=== PATIENT | female | born 1985 | race Caucasian/White ===

== ENCOUNTER 2018-11-11 07:14 | Emergency (ER) | payer OTHER ==
[~2018-11-11] VITALS: Ht 167.6 cm; Wt 66.7 kg
[2018-11-11 07:20] VITALS: BP 135/75; PULSE 74; RESP 19; Ht 167.6 cm; Wt 66.7 kg
[2018-11-11] MEDS ORDERED: ALBUTEROL 0.083% (NEB) 2.5 MG/3 ML AMP NEB STA (07:27)
[2018-11-11] MEDS ORDERED: IPRATROPIUM (NEB) 0.5 MG/2.5 ML AMP NEB STA (07:27)
--- NOTE | 2018-11-11 07:30 | ERD ---
ER Documentation Chief Complaint Chief Complaint SOB,hx asthma HPI 33-year-old female, with history of asthma, presents the emergency department, complaining of worsening of cough during the last 2 weeks, associated with greenish sputum, subjective fever and general malaise. The patient denies acute wheezing and she is requesting a prescription for the Z-Garth. She usually controls her asthma with Ventolin inhaler and Advair. ROS All systems reviewed and are negative except as per history of present illness. Medications Home Meds Active Scripts Prednisone* (Prednisone*) 20 Mg Tab, 60 MG PO DAILY for 5 Days, TAB Prov:CELY CASTILLO MD 11/11/18 Montelukast Sodium* (Montelukast Sodium*) 10 Mg Tablet, 10 MG PO QHS, #30 TAB Prov:CELY CASTILLO MD 11/11/18 Albuterol Sulfate* (Ventolin HFA*) 18 Gm Hfa.aer.ad, 2 PUFF INHALATION Q4H, #1 INHALER Prov:CELY CASTILLO MD 11/11/18 Azithromycin* (Zithromax*) 250 Mg Tablet, 250 MG PO .ZPACK DIRECTED, #6 TAB TAKE 500 MG (2 TABS) THE FIRST DAY THEN 250 MG (1 TAB) DAYS 2-5 Prov:CELY CASTILLO MD 11/11/18 Allergies Allergies: Coded Allergies: No Known Allergy (Unverified , 11/11/18) PMhx/Soc Medical and Surgical Hx: pt denies Surgical Hx Hx Respiratory Disorders: Yes (Asthma) FmHx Family History: diabetes (Mother); No coronary disease Physical Exam Vitals Vital Signs Date Temp Pulse Resp B/P (MAP) Pulse Ox O2 O2 Flow FiO2 Time Delivery Rate 11/11/18 64 20 98 21 07:45 11/11/18 98.5 74 19 135/75 97 07:20 (95) Physical Exam Patient alert, oriented, vital signs stable. HEAD: Normocephalic, atraumatic. EYES: PERRLA, EOMI, Sclera and conjunctiva appear normal. NOSE: Clear and patent nostrils. EARS: Canals clear, tympanic membranes WNL. MOUTH: normal lips and tongue, no oral lesions. THROAT: Normal oropharynx, no tonsillar exudates. NECK: Supple, No lymphadenopathy. Full ROM without pain or tenderness. HEART: RRR, no rubs, murmurs, clicks or gallops. LUNGS: Rhonchi, but no wheezing to auscultation. ABDOMEN: Soft, non-tender without masses or hepatosplenomegaly. EXTREMITIES: No edema bilaterally. BACK: Full ROM, no deformity, normal back exam NEURO: Cranial nerves grossly intact, no motor or sensory deficit SKIN: No rashes, no petechia. Results 24 hrs Current Medications Medications Dose Sig/Shay Start Time Status Last (Trade) Ordered Route PRN Stop Time Admin Dose Reason Admin Albuterol 5 mg ONCE STAT 11/11/18 DC 11/11/18 (Proventil NEB 07:27 07:44 0.083% (Neb)) 11/11/18 07:33 Ipratropium 0.5 mg ONCE STAT 11/11/18 DC 11/11/18 Iola NEB 07:27 07:44 (Atrovent 11/11/18 07:33 0.02% (Neb)) Procedures/MDM At the time of discharge, vital signs stable, no respiratory distress. Differential diagnosis include but not limited to: Respiratory infection bacterial/viral/fungal. Asthma/COPD, pneumonitis, allergies, GERD. Less likely foreign body aspiration, cardiac related, aspiration pneumonia, malignancy. Physical examination and clinical presentation consistent most likely with poorly controlled intermittent asthma without acute bronchospasm with suspected early superimposed bacterial infection. During the ED course the patient remained stable, received a nebulized treatment in the ED presenting overall improvement of the symptoms, no new complaints. Clinical impression discussed with the patient who agrees with management. The patient is stable to be treated outpatient and will be discharged home. Some side effects of prescribed medications (headache, rash, nausea, vomiting, diarrhea, drowsiness, habituation, bleeding, hypertension, interactions with other medications) were reviewed. The patient was instructed to follow up with the primary care provider in the next 48h. If symptoms persist, worsen or new symptoms develop, then patient should return to the ED immediately. Disclaimer: Inadvertent spelling and grammatical errors are likely due to EHR/dictation software use and do not reflect on the overall quality of patient care. Also, please note that the electronic time recorded on this note does not necessarily reflect the actual time of the patient encounter. Departure Diagnosis: Primary Impression: Cough Additional Impression: Intermittent asthma, not well controlled Condition: Stable Additional Instructions: Thank you very much for allowing us to participate in your care. Your health and safety is our top priority at [facility]. The evaluation in the emergency department has been done to rule out an acute emergency, therefore, chronic conditions like malignancy or other diseases have not been evaluated; therefore, you need to follow up with a primary care provider in the next 48h. If symptoms persist, worsen or new symptoms develop, then patient should return to the ED immediately. Call your primary care doctor TOMORROW for an appointment during the next 2-4 days and bring all the information provided. Have prescriptions filled and follow precisely the directions on the label. If the symptoms get worse and your provider is unavailable, return to the Emergency Department immediately. CELY CASTILLO MD Nov 11, 2018 07:30
[2018-11-11] MEDS ORDERED: AZIT250T PO (07:52)
[2018-11-11] MEDS ORDERED: MONT10TA24 PO (07:52)
[2018-11-11] MEDS ORDERED: ALBU18HF INHALATION (07:52)
[2018-11-11] MEDS ORDERED: PRED20TA PO (08:12)
== END 2018-11-11 08:20 | disposition home or self-care (01) ==
LOC: FTE 07:14
DX: J45.21 Mild intermittent asthma with (acute) exacerbation (principal)
CPT/HCPCS: 94664; Z7502; Z7610

== ENCOUNTER 2018-12-29 08:32 | Emergency (ER) | payer OTHER ==
[~2018-12-29] VITALS: Ht 165.1 cm; Wt 66.1 kg
[~2018-12-29 08:32] MED LIST: ALBU18HF INHALATION; AZIT250T PO; MONT10TA24 PO; PRED20TA PO
[2018-12-29 08:36] VITALS: BP 118/74; PULSE 71; RESP 16; Ht 165.1 cm; Wt 66.1 kg
[2018-12-29] MEDS ORDERED: ALBU8.5H8 INH (09:00)
[2018-12-29] MEDS ORDERED: ADV10050 INHALATION (09:00)
[2018-12-29] MEDS ORDERED: D-ME473S2 PO (09:00)
[2018-12-29] MEDS ORDERED: MED4DP PO (09:00)
--- NOTE | 2018-12-29 09:05 | ERD ---
ER Documentation Chief Complaint Chief Complaint COUGH X2 WEEKS HPI This is a 33-year-old female with a history of asthma and tobacco smoking history who presents to ED with complaints of cough x2 weeks. Patient admits to some sputum production and some shortness of breath with prolonged coughing spells. Denies high fevers, sore throat, runny nose, ear pain, chest pain, trouble breathing and all other symptoms. No known drug allergies. Similar symptoms in the past and she was treated with a Z-Garth. States that she is out of her albuterol inhaler and has used Advair in the past and would like a refill of that as well. ROS All systems reviewed and are negative except as per history of present illness. Medications Home Meds Active Scripts Salmeterol Xinaf-Fluticasone* (Advair*) 100/50 Diskus Inhaler, 1 INH INHALATION BID, #1 INHALER Prov:KAYLA GIRON PA-C 12/29/18 Albuterol Sulfate* (Proair HFA*) 8.5 Gm Hfa.aer.ad, 2 PUFF INH Q4, #1 INHALER Prov:KAYLA GIRON PA-C 12/29/18 Methylprednisolone* (Medrol* DOSE PACK) 4 Mg/Dose-Pack Tab.ds.pk, 4 MG PO . DIRECTED for 5 Days, PACKET Prov:KAYLA GIRON PA-C 12/29/18 Dextromethorphan Hb-Promethazine Hcl* (Promethazine DM* Syrup) 473 Ml Syrup, 5 ML PO Q6 PRN for COUGH for 5 Days, ML Prov:KAYLA GIRON PA-C 12/29/18 Prednisone* (Prednisone*) 20 Mg Tab, 60 MG PO DAILY for 5 Days, TAB Prov:CELY CASTILLO MD 11/11/18 Montelukast Sodium* (Montelukast Sodium*) 10 Mg Tablet, 10 MG PO QHS, #30 TAB Prov:CELY CASTILLO MD 11/11/18 Albuterol Sulfate* (Ventolin HFA*) 18 Gm Hfa.aer.ad, 2 PUFF INHALATION Q4H, #1 INHALER Prov:CELY CASTILLO MD 11/11/18 Azithromycin* (Zithromax*) 250 Mg Tablet, 250 MG PO .PHONG DIRECTED, #6 TAB TAKE 500 MG (2 TABS) THE FIRST DAY THEN 250 MG (1 TAB) DAYS 2-5 Prov:CELY CASTILLO MD 11/11/18 Allergies Allergies: Coded Allergies: No Known Allergy (Unverified , 11/11/18) PMhx/Soc History of Surgery: No Anesthesia Reaction: No Hx Neurological Disorder: No Hx Respiratory Disorders: Yes (Asthma) Hx Cardiac Disorders: No Hx Psychiatric Problems: No Hx Miscellaneous Medical Probl: No Hx Alcohol Use: No Hx Substance Use: No Hx Tobacco Use: No FmHx Family History: No diabetes Physical Exam Vitals Vital Signs Date Temp Pulse Resp B/P (MAP) Pulse Ox O2 O2 Flow FiO2 Time Delivery Rate 12/29/18 98.1 71 16 118/74 97 08:36 (89) Physical Exam Physical Exam Vitals signs: Reviewed by me. General: Well developed, well nourished, in no acute distress. Patient is awake and alert. Head: Normocephalic, atraumatic. Eyes: Normal conjunctiva, Pupils PERRLA, EOM intact grossly ENT: Pharynx is clear, Moist mucous membranes, external ears, nose and mouth normal Neck: Supple, no masses, lymphadenopathy or JVD Respiratory: Clear to auscultation bilaterally with no wheezing, rhonchi, rales, no distress, no labored breathing Cardiovascular: RRR, no murmurs, rubs, or gallop Neurologic: Alert and oriented, moving all extremities, normal speech, no focal weakness, no cerebellar signs. Normal mentation Skin: warm and dry, No rash Psych: Normal mood Procedures/MDM ER COURSE: The patient was stable throughout ED course. I kept the patient and/or family informed of laboratory and diagnostic imaging results throughout the emergency room course. The patient was promptly evaluated and a treatment plan was devised based on H&P and other data. This plan was discussed with the patient who agreed and had no further questions or concerns prior to discharge. MEDICAL DECISION MAKIN-year-old female with a history of asthma and tobacco smoking history presents ED with complaints of cough x2 weeks. Symptoms are most likely consistent with acute bronchitis, likely caused from a viral infection. Low suspicion for pneumonia, as lung sounds are clear at this time. Oxygen saturation is normal and patient does not have any respiratory distress. Advanced imaging is not indicated at this time. Low suspicion for other cardiopulmonary emergency such as pulmonary embolism, pneumothorax, tension pneumothorax, pleural effusion, p neumothorax, CHF, aortic aneurysm or other cardiopulmonary emergencies. No evidence of sepsis. Patient's vitals are stable he can be managed with close outpatient follow-up. Advised patient to follow-up with primary care in the next 48 hours. Return to ED with any worsening symptoms DISPOSITION PLAN: We discussed follow up with the patient's primary care doctor within 24 to 48 hours. Patient counseled regarding my diagnostic impression and care plan. Prior to discharge all questions answered. Pt agrees with treatment plan and understands strict return precautions. Precautionary instructions provided including instructions to return to the ER if not improving or for any worsening or changing symptoms or concerns. ExitCare instructions provided. Prior to discharge, patients vital signs have been reviewed SPECIALIST FOLLOW UP RECOMMENDED: None Patient has been advised to follow up with primary care in 1-2 days. Disclaimer: Inadvertent spelling and grammatical errors are likely due to EHR/dictation software use and do not reflect on the overall quality of patient care. Also, please note that the electronic time recorded on this note does not necessarily reflect the actual time of the patient encounter. Smoking Cessation Therapy: Pt. was lectured for greater than 3 minutes on the health risks of continued smoking and the benefits of cessation. Departure Diagnosis: Primary Impression: Cough Condition: Stable Patient Instructions: Acute Bronchitis, Tips for Quitting Smoking (Cardiovascular) Referrals: [facility] YOU HAVE RECEIVED A MEDICAL SCREENING EXAM AND THE RESULTS INDICATE THAT YOU DO NOT HAVE A CONDITION THAT REQUIRES URGENT TREATMENT IN THE EMERGENCY DEPARTMENT. FURTHER EVALUATION AND TREATMENT OF YOUR CONDITION CAN WAIT UNTIL YOU ARE SEEN IN YOUR DOCTORS OFFICE WITHIN THE NEXT 1-2 DAYS. IT IS YOUR RESPONSIBILITY TO MAKE AN APPOINTMENT FOR FOLOW-UP CARE. IF YOU HAVE A PRIMARY DOCTOR --you should call your primary doctor and schedule an appointment IF YOU DO NOT HAVE A PRIMARY DOCTOR YOU CAN CALL OUR PHYSICIAN REFERRAL HOTLINE AT IF YOU CAN NOT AFFORD TO SEE A PHYSICIAN YOU CAN CHOSE FROM THE FOLLOWING [facility] [address] [facility] [address] [facility] [facility] [address] [facility] [facility] [address] [facility] [address] [facility]. [facility] [address] Additional Instructions: Patient advised to return to the ED immediately for new or worsening symptoms. Patient advised to follow up with primary care provider in the next 24-48 hours. Patient verbalized understanding and agrees with treatment plan and course of action. If patient has no primary care they may follow up with one of the [facility] clinics listed on the following page or one of the options listed below [facility] + [facility] [address] [place] [address] or [facility] [address] [place] [address] or [facility] [address] [place] [address] KAYLA GIRON PA-C Dec 29, 2018 09:04
== END 2018-12-29 09:23 | disposition home or self-care (01) ==
LOC: FTE 08:32
DX: J45.901 Unspecified asthma with (acute) exacerbation (principal); Z87.891 Personal history of nicotine dependence
CPT/HCPCS: 99283

== ENCOUNTER 2019-02-02 12:53 | Emergency (ER) | payer OTHER ==
[~2019-02-02] VITALS: Ht 157.5 cm; Wt 67.0 kg
[~2019-02-02 12:53] MED LIST changes: +ADV10050 INHALATION; +ALBU8.5H8 INH; +D-ME473S2 PO; +MED4DP PO
[2019-02-02 12:56] VITALS: BP 121/60; PULSE 78; RESP 18; Ht 157.5 cm; Wt 67.0 kg
--- NOTE | 2019-02-02 13:29 | ERD ---
ER Documentation Chief Complaint Chief Complaint RASH X 2 WEEKS ON ABDOMEN HPI Patient is a 33 years old female with past medical history of asthma presenting to the clinic for unimproved pruritic rash on bilateral breasts and clavicle region. Patient reports pruritus is very severe and can stop herself from scratching it. Patient admits to using Benadryl to go to sleep at night on a regular basis and is unsure if Benadryl is helping. Patient denies fever, chills, night sweats. Patient is also requesting albuterol HFA refill for her asthma. ROS All systems reviewed and are negative except as per history of present illness. Medications Home Meds Active Scripts Albuterol Sulfate* (Proair HFA*) 8.5 Gm Hfa.aer.ad, 2 PUFF INH Q4, #1 INHALER Prov:KIM FERNANDEZ PA-C 02/02/19 Hydrocortisone* Topical (Hydrocortisone* Topical) 2.5%-28.3 Gm Cream..g., 1 APPLIC TOP BID, #1 TUB Prov:KIM FERNANDEZ PA-C 02/02/19 Hydroxyzine Hcl* (Atarax*) 50 Mg Tab, 50 MG PO Q8H PRN for ITCHING for 7 Days, #21 TAB Prov:KIM FERNANDEZ PA-C 02/02/19 Salmeterol Xinaf-Fluticasone* (Advair*) 100/50 Diskus Inhaler, 1 INH INHALATION BID, #1 INHALER Prov:KAYLA GIRON PA-C 12/29/18 Albuterol Sulfate* (Proair HFA*) 8.5 Gm Hfa.aer.ad, 2 PUFF INH Q4, #1 INHALER Prov:KAYLA GIRON PA-C 12/29/18 Methylprednisolone* (Medrol* DOSE PACK) 4 Mg/Dose-Pack Tab.ds.pk, 4 MG PO . DIRECTED for 5 Days, PACKET Prov:KAYLA GIRON PA-C 12/29/18 Dextromethorphan Hb-Promethazine Hcl* (Promethazine DM* Syrup) 473 Ml Syrup, 5 ML PO Q6 PRN for COUGH for 5 Days, ML Prov:KAYLA GIRON PA-C 12/29/18 Prednisone* (Prednisone*) 20 Mg Tab, 60 MG PO DAILY for 5 Days, TAB Prov:GOMES-GOMEZ,CELY MD 11/11/18 Montelukast Sodium* (Montelukast Sodium*) 10 Mg Tablet, 10 MG PO QHS, #30 TAB Prov:CELY CASTILLO MD 11/11/18 Albuterol Sulfate* (Ventolin HFA*) 18 Gm Hfa.aer.ad, 2 PUFF INHALATION Q4H, #1 INHALER Prov:CELY CASTILLO MD 11/11/18 Azithromycin* (Zithromax*) 250 Mg Tablet, 250 MG PO .ZPACK DIRECTED, #6 TAB TAKE 500 MG (2 TABS) THE FIRST DAY THEN 250 MG (1 TAB) DAYS 2-5 Prov:CELY CASTILLO MD 11/11/18 Discontinued Scripts Albuterol Sulfate* (Albuterol Sulfate* Neb) 0.083%-3 Ml Neb, 2.5 MG NEB Q4 PRN for SHORTNESS OF BREATH, #30 EA Prov:KIM FERNANDEZ PA-C 02/02/19 Allergies Allergies: Coded Allergies: No Known Allergy (Unverified , 11/11/18) PMhx/Soc History of Surgery: No Anesthesia Reaction: No Hx Neurological Disorder: No Hx Respiratory Disorders: Yes (Asthma) Hx Cardiac Disorders: No Hx Psychiatric Problems: No Hx Miscellaneous Medical Probl: No Hx Alcohol Use: No Hx Substance Use: No Hx Tobacco Use: No Smoking Status: Never smoker FmHx Family History: No diabetes, No coronary disease, No other Physical Exam Vitals Vital Signs Date Temp Pulse Resp B/P (MAP) Pulse Ox O2 O2 Flow FiO2 Time Delivery Rate 02/02/19 98.1 78 18 121/60 99 12:56 (80) Physical Exam Const: No acute distress Head: Atraumatic Eyes: Normal Conjunctiva Resp: Clear to auscultation bilaterally Cardio: Regular rate and rhythm, no murmurs Skin: Diffuse macular rash around bilateral breasts extending to bilateral clavicle region. Negative shawl sign, no induration, no skin perforation, no excoriation, no pus drainage. Back: No midline or flank tenderness Ext: No cyanosis, or edema Neur: Awake and alert Psych: Normal Mood and Affect Patient exposed her breast for rash evaluation before provider could get a female production cook. Results 24 hrs Laboratory Tests Test 7/14/19 13:35 POC Beta HCG, Qualitative NEGATIVE Current Medications Medications Dose Sig/Shay Start Time Status Last (Trade) Ordered Route PRN Stop Time Admin Dose Reason Admin Hydroxyzine 50 mg ONCE ONCE 02/02/19 DC 02/02/19 HCl PO 13:30 13:37 (Atarax) 02/02/19 13:31 125 mg ONCE ONCE 02/02/19 DC 02/02/19 Methylprednis IM 13:30 13:38 olone Sodium 02/02/19 13:31 Succinate (Solu-Medrol) Procedures/MDM Patient was seen and evaluated for pruritic rash without complications. Low suspicion is of cellulitis, TEN, fungal infection, psoriasis, eczema, dermatomyositis. Urine negative. Patient was given Solu-Medrol 125 IM, hydroxyzine 50 mg p.o. in ED with significant improvement of symptoms. Patient is stable and ready for discharge. Follow-up with PCP for dermatology referral if rash persists. Patient will be discharged with hydroxyzine, hydrocortisone. Patient will be given albuterol for her asthma. patient was advised to avoid scratching rash. Departure Diagnosis: Primary Impression: Rash and other nonspecific skin eruption Condition: Stable Patient Instructions: Self-Care for Skin Rashes Referrals: [facility] Additional Instructions: Patient advised to return to the ED immediately for new or worsening symptoms. Patient advised to follow up with primary care provider in the next 24-48 hours. Patient verbalized understanding and agrees with treatment plan and course of action. If patient has no primary care they may follow up with [facility] + [facility] [address] [place] [id number] or [facility] [address] [place] [address] or [facility] [address] [place] [address] KIM FERNANDEZ PA-C Feb 02, 2019 13:29
[2019-02-02] MEDS ORDERED: METHYLPREDNISOLONE 125 MG INJ IM ONE (13:30)
[2019-02-02] MEDS ORDERED: hydrOXYzine HCL 25 MG TAB PO ONE (13:30)
[2019-02-02] MEDS ORDERED: ALBU2.5V3 NEB (13:31)
[2019-02-02] MEDS ORDERED: HC30CR25 TOP (13:31)
[2019-02-02] MEDS ORDERED: HYDR-845 PO (13:31)
[2019-02-02] MEDS ORDERED: ALBU8.5H8 INH (13:34)
== END 2019-02-02 14:06 | disposition home or self-care (01) ==
LOC: FTE 12:53
DX: R21 Rash and other nonspecific skin eruption (principal); J45.909 Unspecified asthma, uncomplicated
CPT/HCPCS: 81025; 96372; J2930; Z7502; Z7610

== ENCOUNTER 2019-02-11 07:05 | Emergency (ER) | payer OTHER ==
[~2019-02-11] VITALS: Ht 157.5 cm; Wt 66.0 kg
[~2019-02-11 07:05] MED LIST changes: +HC30CR25 TOP; +HYDR-845 PO
[2019-02-11 07:06] VITALS: BP 116/73; PULSE 76; RESP 18; Ht 157.5 cm; Wt 66.0 kg
[2019-02-11] MEDS ORDERED: ALBU8.5H8 INH (07:51)
[2019-02-11] MEDS ORDERED: GUAI120S25 PO (07:51)
[2019-02-11] MEDS ORDERED: BEN25 PO (07:51)
[2019-02-11] MEDS ORDERED: HC30CR25 TOP (07:53)
[2019-02-11] MEDS ORDERED: DIPHENHYDRAMINE 50 MG CAP PO ONE (08:00)
--- NOTE | 2019-02-11 08:12 | ERD ---
ER Documentation Chief Complaint Chief Complaint rash,cough HPI Patient is 33-year-old female presented to ED for skin rash x4 weeks. Patient states she was seen a week ago in the ED and was given a steroid injection topical hydrocortisone and hydroxyzine. Patient states that the symptoms are still there is not getting better. Patient states she also had a cough for 1 month and that she is a smoker and has a history of asthma and bronchitis. Patient also has a history of anxiety and is been on the medication gabapentin for few months. Patient denies any allergies to medications. ROS All systems reviewed and are negative except as per history of present illness. Medications Home Meds Active Scripts Hydrocortisone* Topical (Hydrocortisone* Topical) 2.5%-28.3 Gm Cream..g., 1 APPLIC TOP BID, #1 TUB Prov:SHAWN LANCASTER PA-C 02/11/19 Diphenhydramine Hcl* (Benadryl*) 25 Mg Cap, 25 MG PO Q6, #30 CAP Prov:SHAWN LANCASTER PA-C 02/11/19 Yoglesznpyp-F-Douxgoqdae Hb* (Guaifenesin* DM Syrup) 120 Ml Syrup, 10 ML PO Q4H PRN for COUGH for 7 Days, ML Prov:SHAWN LANCASTER PA-C 02/11/19 Albuterol Sulfate* (Proair HFA*) 8.5 Gm Hfa.aer.ad, 2 PUFF INH Q4, #1 INHALER Prov:SHAWN LANCASTER PA-C 02/11/19 Albuterol Sulfate* (Proair HFA*) 8.5 Gm Hfa.aer.ad, 2 PUFF INH Q4, #1 INHALER Prov:KIM FERNANDEZ PA-C 02/02/19 Hydrocortisone* Topical (Hydrocortisone* Topical) 2.5%-28.3 Gm Cream..g., 1 APPLIC TOP BID, #1 TUB Prov:KIM FERNANDEZ PA-C 02/02/19 Hydroxyzine Hcl* (Atarax*) 50 Mg Tab, 50 MG PO Q8H PRN for ITCHING for 7 Days, #21 TAB Prov:KIM FERNANDEZ PA-C 02/02/19 Salmeterol Xinaf-Fluticasone* (Advair*) 100/50 Diskus Inhaler, 1 INH INHALATION BID, #1 INHALER Prov:KAYLA GIRON PA-C 12/29/18 Albuterol Sulfate* (Proair HFA*) 8.5 Gm Hfa.aer.ad, 2 PUFF INH Q4, #1 INHALER Prov:KAYLA GIRON PA-C 12/29/18 Methylprednisolone* (Medrol* DOSE PACK) 4 Mg/Dose-Pack Tab.ds.pk, 4 MG PO . DIRECTED for 5 Days, PACKET Prov:KAYLA GIRON PA-C 12/29/18 Dextromethorphan Hb-Promethazine Hcl* (Promethazine DM* Syrup) 473 Ml Syrup, 5 ML PO Q6 PRN for COUGH for 5 Days, ML Prov:KAYLA GIRON PA-C 12/29/18 Prednisone* (Prednisone*) 20 Mg Tab, 60 MG PO DAILY for 5 Days, TAB Prov:CELY CASTILLO MD 11/11/18 Montelukast Sodium* (Montelukast Sodium*) 10 Mg Tablet, 10 MG PO QHS, #30 TAB Prov:CELY CASTILLO MD 11/11/18 Albuterol Sulfate* (Ventolin HFA*) 18 Gm Hfa.aer.ad, 2 PUFF INHALATION Q4H, #1 INHALER Prov:CELY CASTILLO MD 11/11/18 Azithromycin* (Zithromax*) 250 Mg Tablet, 250 MG PO .ZPACK DIRECTED, #6 TAB TAKE 500 MG (2 TABS) THE FIRST DAY THEN 250 MG (1 TAB) DAYS 2-5 Prov:CELY CASTILLO MD 11/11/18 Allergies Allergies: Coded Allergies: No Known Allergy (Unverified , 11/11/18) PMhx/Soc History of Surgery: No Anesthesia Reaction: No Hx Neurological Disorder: No Hx Respiratory Disorders: Yes (Asthma) Hx Cardiac Disorders: No Hx Psychiatric Problems: No Hx Miscellaneous Medical Probl: No Hx Alcohol Use: Yes Hx Substance Use: No Hx Tobacco Use: Yes Smoking Status: Current every day smoker FmHx Family History: No diabetes, No coronary disease, No other Physical Exam Vitals Vital Signs Date Temp Pulse Resp B/P (MAP) Pulse Ox O2 O2 Flow FiO2 Time Delivery Rate 02/11/19 98.0 76 18 116/73 99 07:06 (87) Physical Exam NECK: C-spine is soft and supple. There is no meningismus. There is no cervical lymphadenopathy. CHEST: Clear to auscultation bilaterally. There are no rales, wheezes or rhonchi. HEART: Regular rate and rhythm. No murmurs, clicks, rubs or gallops. ABDOMEN:Soft, nontender and nondistended. Good bowel sounds. No rebound or guarding. No gross peritonitis. No gross organomegaly or masses. No Blackwood sign or McBurney point tenderness. BACK: No midline or flank tenderness. SKIN: Erythematous nonraised rash located on patient's left flank right flank upper abdominal region, arms bilaterally, upper thighs bilaterally. Negative Nikolsky sign Results 24 hrs Current Medications Medications Dose Sig/Shay Start Time Status Last (Trade) Ordered Route PRN Stop Time Admin Dose Reason Admin 50 mg ONCE ONCE 02/11/19 DC 02/11/19 Diphenhydrami PO 08:00 07:39 ne HCl 02/11/19 08:01 (Benadryl) Procedures/MDM ED course: The patient was stable throughout the ED course. The patient and/or family informed of laboratory and diagnostic imaging results throughout the ED course. Medications given in ER: Benadryl Patient tolerated medication well with no adverse reactions. Patient reported improvement in pain. Smoking Cessation Therapy: Pt. was lectured for greater than 3 minutes on the health risks of continued smoking and the benefits of cessation. Medical decision making: The patient is 33-year-old female presenting to the ED for a rash upper abdom inal, bilateral arms, upper thighs x4 weeks The patient is afebrile and symptoms have been going on for 4 weeks. She was recently seen a week ago in the ED and was discharged with hydroxyzine, hydrocortisone topical and given a steroid shot. Patient states that has not gotten better. The patient recently was prescribed gabapentin. The rash does not involve the patients mouth or neck. The patient is in no acute respiratory distress. The patient denies IV drug use. The patient has no associated conjunctivitis, cracked lips, or strawberry tongue, The rash is nonblanching and the skin is not breaking away Nikolsky sign was negative. Physical exam exam revealed No facial edema} no Koplik spots in buccal mucosa negative Nikolsky sign no palpable fluctuant masses no skin ulcerations, puncture wounds. At this time I have low suspicion for Kawasaki disease, scarlet fever, necro tizing fasciitis, sepsis, gangrene, Adrian-Elie syndrome, toxic epidural necrolysis, abscess, cellulitis, herpes zoster, viral exanthem, anaphylaxis, allergic reaction, allergic contact dermatitis, irritant contact dermatitis, fungal infection, insect bite, impetigo, dermatitis. I advised the patient that I believe the symptoms are from her gabapentin. I advised patient she needs to follow-up with her psychiatrist as soon as possible. Advised the patient that if the rash gets worse the skin starts breaking away or she is not in any worsening discomfort to return to ER immediately. Patient has a history of chronic bronchitis and is a current smoker. At this time I have low suspicion for pneumonia but I am refilling the patient's Pro Air and giving her prescription for guaifenesin for chronic cough. Prescription for home: Pro Air Guaifenesin Benadryl Hydrocortisone topical I have discussed with the patient proper use and common side effects to expert with the medication . I advised the patient/family to speak with the pharmacist dispensing the medication to be advised of any potential drug interactions with other medication or supplements they may be taking. Discharge: At this time, patient is stable for discharge and outpatient management. I have instructed the patient to follow-up with his\her primary care physician in 1 to 2 days. I have discussed with the patient the possibility of needing to see a specialist for further work-up and imaging studies if symptoms persist. I have instructed the patient to promptly return to the ER for any new or worsening symptoms including increased pain, fever, nausea, vomiting, weakness or LOC. The patient and\or family expressed understanding of and agreement with this plan. All questions were answered. Home care instructions were provided. Disclaimer: Inadvertent spelling and grammatical errors are likely due to EHR\dictation software use and do not reflect on the overall quality of patient care. Also, please note that the electronic time recorded on the note does not necessarily reflect the actual time of the patient encounter. Departure Diagnosis: Primary Impression: Rash and other nonspecific skin eruption Additional Impression: Cough Condition: Stable Patient Instructions: Self-Care for Skin Rashes Referrals: [facility] YOU HAVE RECEIVED A MEDICAL SCREENING EXAM AND THE RESULTS INDICATE THAT YOU DO NOT HAVE A CONDITION THAT REQUIRES URGENT TREATMENT IN THE EMERGENCY DEPARTMENT. FURTHER EVALUATION AND TREATMENT OF YOUR CONDITION CAN WAIT UNTIL YOU ARE SEEN IN YOUR DOCTORS OFFICE WITHIN THE NEXT 1-2 DAYS. IT IS YOUR RESPONSIBILITY TO MAKE AN APPOINTMENT FOR FOLOW-UP CARE. IF YOU HAVE A PRIMARY DOCTOR --you should call your primary doctor and schedule an appointment IF YOU DO NOT HAVE A PRIMARY DOCTOR YOU CAN CALL OUR PHYSICIAN REFERRAL HOTLINE AT IF YOU CAN NOT AFFORD TO SEE A PHYSICIAN YOU CAN CHOSE FROM THE FOLLOWING [facility] [address] [facility] [address] [facility] [address] [facility] [address] [facility] [address] [facility] [facility] [address] [facility] [address] [facility] YOU HAVE RECEIVED A MEDICAL SCREENING EXAM AND THE RESULTS INDICATE THAT YOU DO NOT HAVE A CONDITION THAT REQUIRES URGENT TREATMENT IN THE EMERGENCY DEPARTMENT. FURTHER EVALUATION AND TREATMENT OF YOUR CONDITION CAN WAIT UNTIL YOU ARE SEEN IN YOUR DOCTORS OFFICE WITHIN THE NEXT 1-2 DAYS. IT IS YOUR RESPONSIBILITY TO MAKE AN APPOINTMENT FOR FOLOW-UP CARE. IF YOU HAVE A PRIMARY DOCTOR --you should call your primary doctor and schedule and appointment IF YOU DO NOT HAVE A PRIMARY DOCTOR YOU CAN CALL OUR PHYSICIAN REFERRAL HOTLINE AT . IF YOU CAN NOT AFFORD TO SEE A PHYSICIAN YOU CAN CHOSE FROM THE FOLLOWING [facility]: [facility] [address] [place] [address] [facility] [address] [place] [address] [facility] [address] [place] [address] [facility] () Usted se kim hecho un examen mdico de control que le indica que no est en hermes condicin que requiera tratamiento urgente en el Departamento de Emergencia. Un estudio ms profundo y el tratamiento de sharp condicin pueden esperar sin ningn riesgo hasta que usted sea atendida/o en el consultorio de sharp mdico o hermes clnica. Es responsabilidad suya arreglar hermes maxi para el seguimiento del vonnie. MANEJO DE CONDICIONES NO URGENTES EN EL FUTURO 1) Si usted tiene un mdico de atencin primaria: Usted debera llamar a sharp mdico de atencin primaria antes de venir al departamento de emergencia. Despus de las horas de consultorio, sharp doctor o sharp asociado/a est disponible por telfono. El mdico o enfermero de george en el servicio telefnico puede asesorarle por sophia medio para atender el problema, o vonnie contrario se puede programar hermes maxi. 2) Si usted no tiene un mdico de atencin primaria: Llame al mdico o condado institucions de referencia que aparece abajo mayelin las horas de consultorio para hacer hermes maxi para que le vean. SI USTED NO PUEDE PAGAR PARA MYNOR UN MEDICO puede ir a: [facility] [address] [place] [address] [facility] [address] [place] [address] [facility] [address] [place] [address] [facility] [address] [place] [address] Additional Instructions: Call your primary care doctor TOMORROW for an appointment during the next 1-2 days.See the doctor sooner or return here if your condition worsens before your appointment time. Follow-up with your psychiatrist as soon as possible to be evaluated for adverse side effects of gabapentin. If your rash worsens or the skin breaks open return to the ED immediately SHAWN LANCASTER PA-C Feb 11, 2019 08:12
== END 2019-02-11 07:57 | disposition home or self-care (01) ==
LOC: FTE 07:05
DX: R21 Rash and other nonspecific skin eruption (principal); J45.909 Unspecified asthma, uncomplicated; F17.210 Nicotine dependence, cigarettes, uncomplicated
CPT/HCPCS: Z7502; Z7610; 99283

== ENCOUNTER 2019-03-03 12:20 | Emergency (ER) | payer OTHER ==
[~2019-03-03] VITALS: Ht 165.1 cm; Wt 66.0 kg
[~2019-03-03 12:20] MED LIST changes: +AZIT250T13 PO; +BEN25 PO; +D-ME118S24 PO; +GUAI120S25 PO
[2019-03-03 12:34] VITALS: BP 128/79; PULSE 82; RESP 18; Ht 165.1 cm; Wt 66.0 kg
--- NOTE | 2019-03-03 13:48 | ERD ---
ER Documentation Chief Complaint Chief Complaint COUGH, CONGESTION, AND WHEEZING X 1-2 WEEKS ROS All systems reviewed and are negative except as per history of present illness. Medications Home Meds Active Scripts D-Methorphan Hb/P-Epd HCl/Bpm (Skunbqadoa-Pxyqkzcxfao-Id Syr) 118 Ml Syrup, 5 ML PO Q4H PRN for COUGH for 10 Days, #1 BOTTLE Prov:DANIKA GODWIN DO 03/03/19 Methylprednisolone* (Medrol* DOSE PACK) 4 Mg/Dose-Pack Tab.ds.pk, 4 MG PO . DIRECTED for cough/copd, #1 PACKET Prov:DANIKA GODWIN DO 03/03/19 Azithromycin* (Azithromycin*) 250 Mg Tablet, 250 MG PO DAILY for cough/copd, #5 TAB Prov:DANIKA GODWIN DO 03/03/19 Hydrocortisone* Topical (Hydrocortisone* Topical) 2.5%-28.3 Gm Cream..g., 1 APPLIC TOP BID, #1 TUB Prov:SHAWN LANCASTER PA-C 02/11/19 Diphenhydramine Hcl* (Benadryl*) 25 Mg Cap, 25 MG PO Q6, #30 CAP Prov:SHAWN LANCASTER PA-C 02/11/19 Ogiakgpjuhh-Q-Akniewrpao Hb* (Guaifenesin* DM Syrup) 120 Ml Syrup, 10 ML PO Q4H PRN for COUGH for 7 Days, ML Prov:SHAWN LANCASTER PA-C 02/11/19 Albuterol Sulfate* (Proair HFA*) 8.5 Gm Hfa.aer.ad, 2 PUFF INH Q4, #1 INHALER Prov:SHAWN LANCASTER PA-C 02/11/19 Albuterol Sulfate* (Proair HFA*) 8.5 Gm Hfa.aer.ad, 2 PUFF INH Q4, #1 INHALER Prov:KIM FERNANDEZ PA-C 02/02/19 Hydrocortisone* Topical (Hydrocortisone* Topical) 2.5%-28.3 Gm Cream..g., 1 APPLIC TOP BID, #1 TUB Prov:KIM FERNANDEZ PA-C 02/02/19 Hydroxyzine Hcl* (Atarax*) 50 Mg Tab, 50 MG PO Q8H PRN for ITCHING for 7 Days, #21 TAB Prov:KIM FERNANDEZ PA-C 02/02/19 Salmeterol Xinaf-Fluticasone* (Advair*) 100/50 Diskus Inhaler, 1 INH INHALATION BID, #1 INHALER Prov:KAYLA GIRON PA-C 12/29/18 Albuterol Sulfate* (Proair HFA*) 8.5 Gm Hfa.aer.ad, 2 PUFF INH Q4, #1 INHALER Prov:KAYLA GIRON PA-C 12/29/18 Methylprednisolone* (Medrol* DOSE PACK) 4 Mg/Dose-Pack Tab.ds.pk, 4 MG PO . DIRECTED for 5 Days, PACKET Prov:KAYLA GIRON PA-C 12/29/18 Dextromethorphan Hb-Promethazine Hcl* (Promethazine DM* Syrup) 473 Ml Syrup, 5 ML PO Q6 PRN for COUGH for 5 Days, ML Prov:KAYLA GIRON PA-C 12/29/18 Prednisone* (Prednisone*) 20 Mg Tab, 60 MG PO DAILY for 5 Days, TAB Prov:CELY CASTILLO MD 11/11/18 Montelukast Sodium* (Montelukast Sodium*) 10 Mg Tablet, 10 MG PO QHS, #30 TAB Prov:CELY CASTILLO MD 11/11/18 Albuterol Sulfate* (Ventolin HFA*) 18 Gm Hfa.aer.ad, 2 PUFF INHALATION Q4H, #1 INHALER Prov:CELY CASTILLO MD 11/11/18 Azithromycin* (Zithromax*) 250 Mg Tablet, 250 MG PO .ZPACK DIRECTED, #6 TAB TAKE 500 MG (2 TABS) THE FIRST DAY THEN 250 MG (1 TAB) DAYS 2-5 Prov:CELY CASTILLO MD 11/11/18 Allergies Allergies: Coded Allergies: No Known Allergy (Unverified , 11/11/18) PMhx/Soc History of Surgery: No Anesthesia Reaction: No Hx Neurological Disorder: No Hx Respiratory Disorders: Yes (Asthma) Hx Cardiac Disorders: No Hx Psychiatric Problems: No Hx Miscellaneous Medical Probl: No Hx Alcohol Use: Yes Hx Substance Use: No Hx Tobacco Use: Yes Physical Exam Vitals Vital Signs Date Temp Pulse Resp B/P (MAP) Pulse Ox O2 O2 Flow FiO2 Time Delivery Rate 03/03/19 97.9 82 18 128/79 97 12:34 (95) Physical Exam Const: No acute distress Head: Atraumatic Eyes: Normal Conjunctiva ENT: Normal External Ears, Nose and Mouth. Neck: Full range of motion. No meningismus. Resp: Clear to auscultation bilaterally Cardio: Regular rate and rhythm, no murmurs Abd: Soft, non tender, non distended. Normal bowel sounds Skin: No petechiae or rashes Back: No midline or flank tenderness Ext: No cyanosis, or edema Neur: Awake and alert Psych: Normal Mood and Affect Departure Diagnosis: Primary Impression: Cough Condition: Fair Patient Instructions: COPD: Using Inhalers Referrals: PENDING SALE TO [facility] YOU HAVE RECEIVED A MEDICAL SCREENING EXAM AND THE RESULTS INDICATE THAT YOU DO NOT HAVE A CONDITION THAT REQUIRES URGENT TREATMENT IN THE EMERGENCY DEPARTMENT. FURTHER EVALUATION AND TREATMENT OF YOUR CONDITION CAN WAIT UNTIL YOU ARE SEEN IN YOUR DOCTORS OFFICE WITHIN THE NEXT 1-2 DAYS. IT IS YOUR RESPONSIBILITY TO MAKE AN APPOINTMENT FOR FOLOW-UP CARE. IF YOU HAVE A PRIMARY DOCTOR --you should call your primary doctor and schedule an appointment IF YOU DO NOT HAVE A PRIMARY DOCTOR YOU CAN CALL OUR PHYSICIAN REFERRAL HOTLINE AT IF YOU CAN NOT AFFORD TO SEE A PHYSICIAN YOU CAN CHOSE FROM THE FOLLOWING PENDING SALE TO [facility] [address] [facility] [address] [facility] [address] [facility] [facility] [address] [facility] [facility] [address] [facility] [address] [facility]. [facility]. [address] Additional Instructions: Call your primary care doctor TOMORROW for an appointment during the next 1-2 days.See the doctor sooner or return here if your condition worsens before your appointment time. DANIKA GODWIN DO Mar 03, 2019 13:48
== END 2019-03-03 13:48 | disposition home or self-care (01) ==
LOC: E/R 12:20
DX: J45.901 Unspecified asthma with (acute) exacerbation (principal); Z87.891 Personal history of nicotine dependence
CPT/HCPCS: 99283

== ENCOUNTER 2019-04-16 12:12 | Emergency (ER) | payer OTHER ==
[~2019-04-16] VITALS: Ht 165.1 cm; Wt 67.7 kg
[~2019-04-16 12:12] MED LIST changes: +ADV25050 INHALATION; +GATI2.5D4 RIGHT EYE
[2019-04-16 12:18] VITALS: BP 113/68; PULSE 80; RESP 20; Ht 165.1 cm; Wt 67.7 kg
== END 2019-04-16 13:26 | disposition home or self-care (01) ==
LOC: E/R 12:12
DX: H10.9 Unspecified conjunctivitis (principal); J45.909 Unspecified asthma, uncomplicated; F17.210 Nicotine dependence, cigarettes, uncomplicated
CPT/HCPCS: 99283